=== PATIENT | male | born 1995 | race African-American/Black ===

== ENCOUNTER → 2020-10-27 | Emergency (ER) | payer MEDICAID, OTHER ==
[~2020-10-27] VITALS: Ht 190.5 cm; Wt 99.8 kg
--- NOTE | 2020-10-27 18:21 | NUR ---
ED Nurse Note: Pt brought in by ambulance from home after having seuizure. Per family, seizure lasted 3 minutes. Family denies head injury. Pt reports not taking his medication today but can't remember the names. Spoke with pt's mother who said he takes abilify 2 mg daily and lamictal 100 mg BID. ED MD made aware. Pt A+Ox4 with some forgetfulness. BS checked here is 102. Respirations even and unlabored on room air. Vitals stable as documented.
[2020-10-27 18:26] VITALS: BP 139/89
--- NOTE | 2020-10-27 18:44 | Emergency Room Report ---
History of Present Illness General Chief Complaint: Seizure Source: Patient Present Illness HPI 24-year-old male history of seizures on Lamictal he had a tonic-clonic seizure witnessed, LOC, tongue biting resolved prior to arrival patient was mildly confused but is back to baseline severity was moderate, lasting a few minutes aggravated by not taking his medications alleviated by taking medications patient presents for evaluation treatment Allergies: Coded Allergies: No Known Allergies (Unverified , 10/27/20) COVID-19 Screening Contact w/high risk pt: No Experienced COVID-19 symptoms?: No COVID-19 Testing performed 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 Patient History Past Medical History: see triage record Reviewed Nursing Documentation: PMH: Agreed; PSxH: Agreed Nursing Documentation-PMH Past Medical History: No History, Except For Hx Seizures: Yes Review of Systems All Other Systems: negative except mentioned in HPI Physical Exam Vital Signs Date Time Temp Pulse Resp B/P (MAP) Pulse Ox O2 Delivery O2 Flow Rate FiO2 10/27/20 18:07 96 16 145/94 (111) 97 Room Air 10/27/20 18:26 98.1 Sp02 EP Interpretation: reviewed, normal General Appearance: well appearing, no apparent distress, alert Head: normocephalic, atraumatic Eyes: bilateral eye PERRL, bilateral eye EOMI ENT: uvula midline, moist mucus membranes Neck: supple, thyroid normal, supple/symm/no masses Respiratory: lungs clear, no respiratory distress, no retraction, no accessory muscle use Cardiovascular #1: normal peripheral pulses, regular rate, rhythm, no edema, no gallop, no murmur Gastrointestinal: non tender, soft, no guarding, no rebound Musculoskeletal: normal inspection Neurologic: alert, oriented x3 Psychiatric: mood/affect normal Skin: no rash, warm/dry Medical Decision Making Diagnostic Impression: Primary Impression: Epileptic seizure, generalized Additional Impression: Seizure disorder ER Course 24-year-old male history of seizure disorder epilepsy, presents with witnessed tonic-clonic seizure patient missed his dose of Lamictal Patient provided Lamictal here in the ED Patient back at baseline Glucose 104 disposition home with return precautions patient is leaving with family Last Vital Signs Date Time Temp Pulse Resp B/P (MAP) Pulse Ox O2 Delivery O2 Flow Rate FiO2 10/27/20 18:26 98.1 90 18 139/89 98 Room Air Disposition: HOME, SELF-CARE Condition: Stable Referrals: [facility] Patient Instructions: Seizure, Adult Additional Instructions: The patient was provided with discharge instructions, notified to follow-up with a primary care doctor and or specialist in the next 24-48 hours, and to return to the ED if they have worsening of their symptoms. Please note that this report is being documented using DRAGON technology. This can lead to erroneous entry secondary to incorrect interpretation by the dictating instrument. John Vital MD Oct 27, 2020 18:44
[2020-10-27 19:00] VITALS: BP 141/81
--- NOTE | 2020-10-27 19:00 | NUR ---
ED Nurse Note: Pt cleared by health care Provider for discharge. DC instructions were given and explained to pt and verbalized understanding of teachings. All medical deviecs such as ID band removed. Pt is AAO x4, waiting for mother to pick him up.
--- NOTE | 2020-10-27 19:20 | NUR ---
ER DISCHARGE NOTE: Patient is cleared to be discharged per ERMD, pt is aox4, on room air, with stable vital signs. pt was given dc and prescription instructions, pt was able to verbalize understanding, pt id band and iv site removed without complications. pt is able to ambulate with steady gait. pt took all belongings.
== END | disposition home or self-care (01) ==
LOC: EDUNIT# 18:07 → EDBD 18:10 → EMR 18:30
DX: G40.409 Other generalized epilepsy and epileptic syndromes, not intractable, without status epilepticus (principal)
CPT/HCPCS: 99282